=== PATIENT | male | born 1955 | race Caucasian/White ===

== ENCOUNTER 2020-11-27 19:49 | Emergency (ER) | payer MEDICARE ==
[2020-11-27 20:29] LABS: HEMOGLOBIN 16.3 gm/dl (14.0-17.5); RED BLOOD COUNT 5.34 M/UL (4.20-5.50)
[2020-11-27 20:46] LABS: BUN/CREATININE RATIO 26 (0-10)
[2020-11-27] MEDS ORDERED: FLOMAX 0.4 MG0.4 MG PO ×2 (22:36→22:38)
== END 2020-11-27 23:00 | disposition home or self-care (01) ==
LOC: ER1 19:49
PROVIDERS: Family Medicine
DX: N13.8 Other obstructive and reflux uropathy (principal); R73.9 Hyperglycemia, unspecified; R03.0 Elevated blood-pressure reading, without diagnosis of hypertension; Z88.0 Allergy status to penicillin
CPT/HCPCS: 51702; 80053; 81001; 85025; 99283